=== PATIENT | male | born 1980 | race Caucasian/White ===

== ENCOUNTER → 2016-07-28 | Outpatient (CLI) | payer OTHER | END | disposition home or self-care (01) | LOC: EMPHLTH 13:52 | PROVIDERS: ATTEND Internal Medicine | DX: R76.11 Nonspecific reaction to tuberculin skin test without active tuberculosis (principal) ==

== ENCOUNTER → 2020-07-22 | Outpatient (CLI) | payer OTHER | END | disposition home or self-care (01) | LOC: RADMN 15:06 | PROVIDERS: ATTEND Internal Medicine | DX: R76.11 Nonspecific reaction to tuberculin skin test without active tuberculosis (principal) | CPT/HCPCS: 71045 ==

== ENCOUNTER 2021-10-26 20:45 | Emergency (ER) | payer OTHER ==
[~2021-10-26] VITALS: Ht 185.4 cm; Wt 72.7 kg
[2021-10-26 21:02] VITALS: BP 132/79
[2021-10-26] MEDS ORDERED: PERTUSS(ACELL),DIPH,TET VAC/PF 0.5 ML SYRINGE IM. ONE (21:15)
[2021-10-26] MEDS ORDERED: BACITRACIN 28 GM OINTMENT TP ONE (21:15)
[2021-10-26] MEDS ORDERED: LIDOCAINE 1%/EPI 1:200,000/PF 30 ML VIAL SQ ONE (21:15)
[2021-10-26] MEDS ORDERED: NEOMYCIN/BACITRACIN/POLYMYXIN B OINTMENT PACKET TP ONE (21:19)
== END 2021-10-26 22:47 | disposition home or self-care (01) ==
LOC: EMS 20:47
DX: S61.011A Laceration without foreign body of right thumb without damage to nail, initial encounter (principal); W25.XXXA Contact with sharp glass, initial encounter; Y93.89 Activity, other specified; Y92.89 Other specified places as the place of occurrence of the external cause; Y99.8 Other external cause status
CPT/HCPCS: 99283; 90715; 90471; 12002; J3490

== ENCOUNTER 2025-01-18 09:32 | Emergency (ER) | payer OTHER ==
[~2025-01-18] VITALS: Ht 177.8 cm; Wt 72.0 kg
[2025-01-18 09:50] VITALS: BP 135/81; PULSE 81; RESP 18; TEMP 98.1; O2SAT 98
[2025-01-18] MEDS: LIDOCAINE 5% TRANSDERMAL PATCH TD ONE (10:40)
[2025-01-18] MEDS: KETOROLAC TROMETHAMINE 60 MG/2 ML VIAL IM ONE (10:40)
[2025-01-18] MEDS ORDERED: METH-659 PO (11:55)
[2025-01-18] MEDS ORDERED: LIDO-57 TP (11:55)
[2025-01-18] MEDS ORDERED: IBUP-1492 PO (11:55)
== END 2025-01-18 12:42 | disposition home or self-care (01) ==
LOC: EMS 09:32
DX: S39.012A Strain of muscle, fascia and tendon of lower back, initial encounter (principal); X58.XXXA Exposure to other specified factors, initial encounter; Y93.89 Activity, other specified; Y92.89 Other specified places as the place of occurrence of the external cause; Y99.8 Other external cause status
CPT/HCPCS: 99283; 96372; J1885